=== PATIENT | male | born 2000 | race Two or more races ===

== ENCOUNTER 2020-07-20 22:24 | Inpatient (IN) | payer BC ==
[~2020-07-20] VITALS: Ht 170.2 cm; Wt 60.5 kg
[2020-07-20 23:16] LABS: AMPHET/METH SCREEN,URINE NEGATIVE (NEGATIVE); BARBITURATE SCREEN, URINE NEGATIVE (NEGATIVE); BENZODIAZEPINES SCREEN,URINE NEGATIVE (NEGATIVE); CANNABINOID SCREEN,URINE POSITIVE (NEGATIVE); COCAINE SCREEN,URINE NEGATIVE (NEGATIVE); METHADONE SCREEN, URINE NEGATIVE (NEGATIVE); OPIATE SCREEN,URINE NEGATIVE (NEGATIVE); PHENCYCLIDINE SCREEN,URINE NEGATIVE (NEGATIVE)
[2020-07-20 23:24] LABS: COVID AG,FIA SOURCE NASOPHARYNGEAL
[2020-07-20 23:28] LABS: BASOPHILS % (AUTO) 0.2 % (0.0-2.0); EOSINOPHILS % (AUTO) 0.1 % (1.0-6.0); LYMPHOCYTES # (AUTO) 1.1 K/uL (1.0-4.8); LYMPHOCYTES % (AUTO) 9.5 % (22.0-44.0); MEAN CORPUSCULAR HEMOGLOBIN 30.7 pg (26.0-34.0); MEAN CORPUSCULAR HGB CONC 33.4 G/dL (31.0-37.0); MEAN CORPUSCULAR VOLUME 92 fL (80-100); MONOCYTES # (AUTO) 0.7 K/uL (0.1-1.0); MONOCYTES % (AUTO) 6.3 % (2.0-9.0); NEUTROPHILS # (AUTO) 9.3 K/uL (1.8-7.7); NEUTROPHILS % (AUTO) 83.9 % (40.0-70.0); PLATELET COUNT (AUTO) 240 K/uL (150-450); RED BLOOD CELL COUNT(AUTO) 5.22 MIL/uL (4.50-5.90); RED CELL DISTRIBUTION WIDTH 14.8 % (11.5-14.5)
[2020-07-20 23:37] LABS: ANION GAP 13 mmol/L (8-16); CARBON DIOXIDE 23 mmol/L (22-29); CHLORIDE 107 mmol/L (98-107); CREATININE 1.09 mg/dL (0.60-1.30); GLOMERULAR FILTR. RATE CALC > 60 mL/min (>60); GLUCOSE,RANDOM 105 mg/dL (70-110); POTASSIUM 3.5 mmol/L (3.5-5.1); SODIUM SERUM 143 mmol/L (136-145); UREA NITROGEN, BLOOD 13 mg/dL (7-18)
[2020-07-20 23:41] LABS: ALANINE AMINOTRANSFERASE 22 U/L (12-78); ALBUMIN 4.6 g/dL (3.4-5.0); ALKALINE PHOSPHATASE 81 U/L (46-116); ASPARTATE AMINOTRANSFERASE 18 U/L (15-37); BILIRUBIN,TOTAL 0.3 mg/dL (0.1-1.0); TOTAL PROTEIN, SERUM 7.9 g/dL (6.4-8.2)
[2020-07-20] MEDS ORDERED: HALOPERIDOL 5 MG TABLET PO PRN (23:45)
[2020-07-21 03:08] LABS: APPEARANCE,URINE CLEAR (CLEAR); BILIRUBIN,URINE NEGATIVE (NEGATIVE); GLUCOSE, URINE (UA) NEGATIVE (NEGATIVE); KETONES,URINE NEGATIVE (NEGATIVE); LEUKOCYTE ESTERASE ,URINE NEGATIVE (NEGATIVE); NITRATE,URINE NEGATIVE (NEGATIVE); OCCULT BLOOD,URINE NEGATIVE (NEGATIVE); PH,URINE 5.5 (5.0-8.0); PROTEIN,URINE NEGATIVE (NEGATIVE); UROBILINOGEN,URINE 0.2 mg/dL (<=1.0)
[2020-07-21 03:12] LABS: CHOL/HDL RATIO 3.7 (4.2-7.3); CHOLESTEROL 176 mg/dL (131-200); HDL CHOLESTEROL 48 mg/dL (40-60); LDL CHOL (CALC.) 79 mg/dL (0-130); TRIGLYCERIDES 243 mg/dL (15-150)
[2020-07-21] MEDS: CloNIDine HCL 0.1 MG TABLET PO PRN (10:38)
[2020-07-21 11:25] VITALS: BP 172/88
[2020-07-21 11:45] VITALS: BP 148/89
[2020-07-21] MEDS: SERTRALINE HCL 50 MG TABLET PO SCH (17:01)
[2020-07-21] MEDS: LORazepam 2 MG TABLET PO PRN (17:07)
[2020-07-21 17:34] VITALS: BP 135/84
[2020-07-21] MEDS: ZOLPIDEM TARTRATE 10 MG TABLET PO PRN (20:28)
[2020-07-22 06:26] VITALS: BP 147/99
[2020-07-22] MEDS: CloNIDine HCL 0.1 MG TABLET PO PRN (08:15)
[2020-07-22] MEDS: LORazepam 2 MG TABLET PO PRN ×3 (08:15→19:40)
[2020-07-22] MEDS: SERTRALINE HCL 50 MG TABLET PO SCH (08:15)
[2020-07-22 09:00] VITALS: BP 151/86
[2020-07-22 09:30] VITALS: BP 136/84
[2020-07-22] MEDS ORDERED: ALBUTEROL SULFATE HFA 90 MCG/PUFF 8 GM INHALER IH PRN (11:15)
[2020-07-22] MEDS ORDERED: MAGNESIUM HYDROXIDE SUSPENSION 30 ML UDCUP PO PRN (11:15)
[2020-07-22] MEDS ORDERED: CloNIDine HCL 0.1 MG TABLET PO PRN (11:15)
[2020-07-22] MEDS ORDERED: IBUPROFEN 400 MG TABLET PO PRN (11:15)
[2020-07-22] MEDS ORDERED: GuaiFENesin/D-METHORPHAN [SUGAR-FREE] 200-20MG/10 ML SYRUP UDCUP PO PRN (11:15)
[2020-07-22] MEDS ORDERED: NICOTINE 14 MG/24 HOUR PATCH TD PRN (11:15)
[2020-07-22] MEDS ORDERED: PETROLATUM,WHITE 28 GM JELLY TP PRN (11:15)
[2020-07-22] MEDS ORDERED: ACETAMINOPHEN 325 MG TABLET PO PRN (11:15)
[2020-07-22] MEDS ORDERED: DOCUSATE SODIUM 100 MG CAPSULE PO PRN (11:15)
[2020-07-22] MEDS ORDERED: MAG HYDROX/AL HYDROX/SIMETH ES 30 ML SUSPENSION UDCUP PO PRN (11:15)
[2020-07-22] MEDS ORDERED: LOPERAMIDE HCL 2 MG CAPSULE PO PRN (11:15)
[2020-07-22] MEDS ORDERED: ONDANSETRON HCL 4 MG TABLET PO PRN (11:15)
[2020-07-22 17:07] VITALS: BP 123/93
[2020-07-22] MEDS: ZOLPIDEM TARTRATE 10 MG TABLET PO PRN (21:07)
[2020-07-23 01:05] VITALS: BP 137/82
[2020-07-23] MEDS: LORazepam 2 MG TABLET PO PRN (07:54)
[2020-07-23] MEDS: SERTRALINE HCL 50 MG TABLET PO SCH (08:14)
[2020-07-23 09:04] VITALS: BP 142/99
[2020-07-23] MEDS ORDERED: SERT-158 PO (10:52)
== END 2020-07-23 12:55 | disposition home or self-care (01) | DRG 885 ==
LOC: EMS 22:29 → B2S 07-21 07:26
PROVIDERS: ADMIT Psychiatry & Neurology Child & Adolescent Psychiatry; ATTEND Psychiatry & Neurology Child & Adolescent Psychiatry
DX: F33.2 Major depressive disorder, recurrent severe without psychotic features (principal); F41.1 Generalized anxiety disorder; I10 Essential (primary) hypertension; Y90.7 Blood alcohol level of 200-239 mg/100 ml; Z20.822 Contact with and (suspected) exposure to COVID-19
CPT/HCPCS: 87426; 99285; G0480